=== PATIENT | male | born 2000 | race Caucasian/White ===

== ENCOUNTER 2022-04-27 19:09 | Emergency (ER) | payer OTHER ==
[~2022-04-27] VITALS: Ht 182.9 cm; Wt 128.4 kg
[2022-04-27] MEDS ORDERED: AUGMENTIN 875 MG TAB PO ONE (21:55)
[2022-04-27] MEDS ORDERED: predniSONE 20 MG TAB PO ONE (21:55)
[2022-04-27] MEDS ORDERED: ACETAMINOPHEN 500 MG TAB PO ONE (21:55)
[2022-04-27] MEDS ORDERED: AMOX875T2 PO (21:59)
[2022-04-27] MEDS ORDERED: PRED20TA PO (21:59)
[2022-04-27 22:23] VITALS: BP 149/78
== END 2022-04-27 22:30 | disposition home or self-care (01) ==
LOC: M ED 19:09
DX: J02.9 Acute pharyngitis, unspecified (principal); K21.9 Gastro-esophageal reflux disease without esophagitis; F17.200 Nicotine dependence, unspecified, uncomplicated; Z79.83 Long term (current) use of bisphosphonates; Z79.2 Long term (current) use of antibiotics; Z79.899 Other long term (current) drug therapy
CPT/HCPCS: 87880; 99283; J7512

== ENCOUNTER 2022-05-15 02:00 | Emergency (ER) | payer OTHER ==
[~2022-05-15] VITALS: Ht 182.9 cm; Wt 131.6 kg
[~2022-05-15 02:00] MED LIST: AMOX875T2 PO; PRED20TA PO
[2022-05-15 03:58] VITALS: BP 122/74
[2022-05-15] MEDS ORDERED: AMOX500C PO (03:59)
[2022-05-15] MEDS ORDERED: AMOXICILLIN 500 MG CAP PO ONE (04:00)
== END 2022-05-15 04:06 | disposition home or self-care (01) ==
LOC: M ED 02:00
DX: H66.91 Otitis media, unspecified, right ear (principal); F17.200 Nicotine dependence, unspecified, uncomplicated; F10.10 Alcohol abuse, uncomplicated; Z88.3 Allergy status to other anti-infective agents; Z79.2 Long term (current) use of antibiotics; Z79.52 Long term (current) use of systemic steroids

== ENCOUNTER 2023-02-01 01:50 | Emergency (ER) | payer OTHER, SELFPAY ==
[~2023-02-01] VITALS: Ht 182.9 cm; Wt 140.9 kg
[~2023-02-01 01:50] MED LIST changes: +AMOX500C PO
[2023-02-01 02:33] LABS: HEMATOCRIT 42.6 % (42.0-52.0); HEMOGLOBIN 15.2 g/dl (13.5-17.5); MEAN CORPUSCULAR HEMOGLOBIN 31.7 pg (27.0-33.0); MEAN CORPUSCULAR HGB CONC 35.7 g/dl (32.0-36.5); MEAN CORPUSCULAR VOLUME 88.8 fl (80.0-96.0); PLATELET COUNT, AUTOMATED 233 10^3/uL (150-450); WHITE BLOOD COUNT 7.6 10^3/uL (4.0-10.0)
[2023-02-01 02:58] LABS: ALKALINE PHOSPHATASE 59 U/L (46-116); AST/SGOT 13 U/L (<34); BILIRUBIN,TOTAL 0.5 MG/DL (0.3-1.2); BLOOD UREA NITROGEN 17 MG/DL (9-23); CPK CREATINE PHOSPHOKINASE 169 U/L (46-171); CREATININE FOR GFR 0.76 MG/DL (0.70-1.30); GLOMERULAR FILTRATION RATE > 60.0 (>60)
[2023-02-01 02:59] VITALS: TEMP 97.6
[2023-02-01 03:14] LABS: HEPATITIS B SURFACE ANTIBODY POSITIVE (POSITIVE)
[2023-02-01 03:30] VITALS: BP 137/99; O2SAT 98
[2023-02-01 03:38] LABS: HIV 1&2 SCREEN NEGATIVE (NEGATIVE)
[2023-02-01 03:47] LABS: HEPATITIS B CORE ANTIBODY IGM NEGATIVE (NEGATIVE); HEPATITIS C VIRUS ABY INDEX 0.05 INDEX (<0.8)
== END 2023-02-01 03:32 | disposition home or self-care (01) ==
LOC: M ED 01:50
DX: Z77.21 Contact with and (suspected) exposure to potentially hazardous body fluids (principal); F17.200 Nicotine dependence, unspecified, uncomplicated; F12.10 Cannabis abuse, uncomplicated; F10.10 Alcohol abuse, uncomplicated; Z88.3 Allergy status to other anti-infective agents; Z91.010 Allergy to peanuts; Y92.9 Unspecified place or not applicable; Y93.89 Activity, other specified; Z79.52 Long term (current) use of systemic steroids; Z79.2 Long term (current) use of antibiotics

== ENCOUNTER 2023-06-13 02:38 | Emergency (ER) | payer BC, SELFPAY ==
[~2023-06-13] VITALS: Ht 182.9 cm; Wt 169.0 kg
[2023-06-13] MEDS: ACETAMINOPHEN TAB 650MG DOSE (2X325MG) PO ONE (03:01)
[2023-06-13 03:44] LABS: RSV AMPLIFICATION NEGATIVE (NEGATIVE)
[2023-06-13 06:14] VITALS: BP 127/70; TEMP 98.5; O2SAT 98
[2023-06-13] MEDS ORDERED: ONDA4TAB6 PO (06:37)
[2023-06-13] MEDS ORDERED: OSEL75CA PO (06:37)
[2023-06-13] MEDS: OSELTAMIVIR PHOSPHATE 75 MG CAP (TAMIFLU) PO ONE (06:52)
[2023-06-13] MEDS: ONDANSETRON 4MG ORAL DISINTEGRATING TAB PO ONE (06:52)
[2023-06-13] MEDS: IBUPROFEN 800 MG TAB PO ONE (06:52)
== END 2023-06-13 06:59 | disposition home or self-care (01) ==
LOC: M ED 02:38
DX: J09.X2 Influenza due to identified novel influenza A virus with other respiratory manifestations (principal); F17.200 Nicotine dependence, unspecified, uncomplicated; Z91.018 Allergy to other foods; Z88.3 Allergy status to other anti-infective agents; Z79.83 Long term (current) use of bisphosphonates; Z79.899 Other long term (current) drug therapy

== ENCOUNTER 2023-09-22 21:06 | Emergency (ER) | payer BC ==
[~2023-09-22] VITALS: Ht 182.9 cm; Wt 177.3 kg
[~2023-09-22 21:06] MED LIST changes: +ONDA-282 PO; +OSEL75CA PO
[2023-09-22 21:59] LABS: CK-MB VALUE MASS < 1.0 NG/ML (<3.6)
[2023-09-22 22:01] LABS: ALBUMIN 3.8 G/DL (3.2-5.2); ALKALINE PHOSPHATASE 75 U/L (46-116); ALT/SGPT 47 U/L (7.0-40); AST/SGOT 24 U/L (<34); BASO # 0.1 10^3/uL (0.0-0.2); BASO % 0.8 % (0.0-1.0); BILIRUBIN,TOTAL 0.6 MG/DL (0.3-1.2); BLOOD UREA NITROGEN 23 MG/DL (9-23); CALCIUM LEVEL 8.9 MG/DL (8.5-10.1); CARBON DIOXIDE LEVEL 24 MMOL/L (20-31); CHLORIDE LEVEL 111 MMOL/L (98-107); CREATININE FOR GFR 1.14 MG/DL (0.70-1.30); EOS # 0.4 10^3/uL (0.0-0.5); EOS % 4.8 % (0.0-3.0); GLOMERULAR FILTRATION RATE > 60.0 (>60); GLUCOSE, FASTING 111 MG/DL (60-100); LYMPH # 2.6 10^3/uL (1.5-5.0); MEAN CORPUSCULAR HEMOGLOBIN 32.1 pg (27.0-33.0); MEAN CORPUSCULAR VOLUME 88.2 fl (80.0-96.0); MONO # 0.4 10^3/uL (0.0-0.8); NEUTROPHILS # 5.2 10^3/uL (1.5-8.5); NEUTROPHILS % 58.8 % (36.0-66.0); PLATELET COUNT, AUTOMATED 242 10^3/uL (150-450); POTASSIUM SERUM 4.2 MMOL/L (3.5-5.1); RED BLOOD COUNT 4.99 10^6/uL (4.30-6.10); SODIUM LEVEL 142 MMOL/L (136-145); TOTAL PROTEIN 6.8 G/DL (5.7-8.2); WHITE BLOOD COUNT 8.8 10^3/uL (4.0-10.0)
[2023-09-22 22:03] LABS: MEAN CORPUSCULAR HGB CONC 36.4 g/dl (32.0-36.5)
[2023-09-22 22:07] LABS: CPK CREATINE PHOSPHOKINASE 142 U/L (46-171)
[2023-09-23 00:15] VITALS: BP 165/85; TEMP 98; O2SAT 98
== END 2023-09-23 03:20 | disposition left against medical advice (07) ==
LOC: M ED 21:06
DX: Z53.21 Procedure and treatment not carried out due to patient leaving prior to being seen by health care provider (principal)

== ENCOUNTER 2023-11-08 08:27 | Emergency (ER) | payer BC, OTHER ==
[~2023-11-08] VITALS: Ht 180.3 cm; Wt 179.1 kg
[2023-11-08] MEDS: KETOROLAC 60MG 2ML VIAL IM ONE (09:42)
[2023-11-08 10:17] VITALS: BP 141/84; TEMP 96.8; O2SAT 96
== END 2023-11-08 10:23 | disposition home or self-care (01) ==
LOC: M ED 08:27
DX: S80.12XA Contusion of left lower leg, initial encounter (principal); W19.XXXA Unspecified fall, initial encounter; F17.200 Nicotine dependence, unspecified, uncomplicated; F10.10 Alcohol abuse, uncomplicated; Z88.3 Allergy status to other anti-infective agents; Z91.048 Other nonmedicinal substance allergy status; Y92.002 Bathroom of unspecified non-institutional (private) residence as the place of occurrence of the external cause; Y93.89 Activity, other specified; Y99.9 Unspecified external cause status
CPT/HCPCS: 73590; 96372; 99283; J1885

== ENCOUNTER 2023-11-13 09:56 | Emergency (ER) | payer BC, OTHER ==
[~2023-11-13] VITALS: Ht 180.3 cm; Wt 179.9 kg
[2023-11-13 12:12] VITALS: BP 143/85; TEMP 97.6; O2SAT 97
[2023-11-13] MEDS ORDERED: CEPH500C PO (12:21)
== END 2023-11-13 12:30 | disposition home or self-care (01) ==
LOC: M ED 09:56
DX: S70.12XA Contusion of left thigh, initial encounter (principal); L03.116 Cellulitis of left lower limb; W18.2XXA Fall in (into) shower or empty bathtub, initial encounter; F17.200 Nicotine dependence, unspecified, uncomplicated; Z88.8 Allergy status to other drugs, medicaments and biological substances; Z91.048 Other nonmedicinal substance allergy status; Z79.2 Long term (current) use of antibiotics; Y92.002 Bathroom of unspecified non-institutional (private) residence as the place of occurrence of the external cause; Y93.89 Activity, other specified; Y99.9 Unspecified external cause status

== ENCOUNTER 2023-12-06 06:14 | Emergency (ER) | payer BC, OTHER ==
[~2023-12-06] VITALS: Ht 180.3 cm; Wt 181.0 kg
[~2023-12-06 06:14] MED LIST changes: +CEPH500C PO
[2023-12-06 06:20] VITALS: BP 168/100; TEMP 98.7; O2SAT 98
[2023-12-06] MEDS: ACETAMINOPHEN 325 MG TAB PO ONE (07:08)
[2023-12-06] MEDS ORDERED: PENI500T PO (07:08)
[2023-12-06] MEDS: IBUPROFEN 600MG TAB PO ONE (07:08)
[2023-12-06] MEDS: PENICILLIN V POTASSIUM 500 MG TAB PO ONE (07:12)
== END 2023-12-06 07:17 | disposition home or self-care (01) ==
LOC: M ED 06:14
DX: J02.0 Streptococcal pharyngitis (principal); F17.200 Nicotine dependence, unspecified, uncomplicated; Z91.048 Other nonmedicinal substance allergy status; Z88.8 Allergy status to other drugs, medicaments and biological substances; Z79.2 Long term (current) use of antibiotics

== ENCOUNTER 2024-01-03 09:34 | Emergency (ER) | payer BC, OTHER ==
[~2024-01-03] VITALS: Ht 180.3 cm; Wt 178.0 kg
[~2024-01-03 09:34] MED LIST changes: +PENI500T PO
[2024-01-03 12:02] LABS: MONO SCRN NEGATIVE (NEGATIVE)
[2024-01-03 12:59] VITALS: BP 150/90; TEMP 97; O2SAT 97
[2024-01-03] MEDS ORDERED: AMOX875T2 PO (13:02)
== END 2024-01-03 13:09 | disposition home or self-care (01) ==
LOC: M ED 09:34
DX: J02.9 Acute pharyngitis, unspecified (principal); I10 Essential (primary) hypertension; F41.9 Anxiety disorder, unspecified; F17.200 Nicotine dependence, unspecified, uncomplicated; Z88.8 Allergy status to other drugs, medicaments and biological substances; Z91.048 Other nonmedicinal substance allergy status; Z79.2 Long term (current) use of antibiotics

== ENCOUNTER 2024-02-15 06:20 | Emergency (ER) | payer OTHER, BC ==
[~2024-02-15] VITALS: Ht 180.3 cm; Wt 183.5 kg
[2024-02-15 08:15] LABS: HEMOGLOBIN A1c 5.1 % (4.0-6.0)
[2024-02-15 08:28] VITALS: BP 168/95; TEMP 97.8; O2SAT 96
== END 2024-02-15 08:32 | disposition home or self-care (01) ==
LOC: M ED 06:20
DX: I87.2 Venous insufficiency (chronic) (peripheral) (principal); R60.9 Edema, unspecified; F17.200 Nicotine dependence, unspecified, uncomplicated; Z88.8 Allergy status to other drugs, medicaments and biological substances; Z91.018 Allergy to other foods

== ENCOUNTER 2024-03-02 01:50 | Emergency (ER) | payer OTHER, BC ==
[~2024-03-02] VITALS: Ht 182.9 cm; Wt 185.5 kg
[2024-03-02] MEDS ORDERED: NAPR-837 PO (05:42)
[2024-03-02 05:49] VITALS: BP 152/84; TEMP 97.3; O2SAT 97
[2024-03-02] MEDS: NAPROXEN 250 MG TAB PO ONE (05:50)
== END 2024-03-02 05:57 | disposition home or self-care (01) ==
LOC: M ED 01:50
DX: S29.011A Strain of muscle and tendon of front wall of thorax, initial encounter (principal); X58.XXXA Exposure to other specified factors, initial encounter; G47.30 Sleep apnea, unspecified; F17.200 Nicotine dependence, unspecified, uncomplicated; F10.10 Alcohol abuse, uncomplicated; Z91.018 Allergy to other foods; Z88.8 Allergy status to other drugs, medicaments and biological substances; Y92.9 Unspecified place or not applicable; Y93.89 Activity, other specified; Y99.9 Unspecified external cause status; Z79.1 Long term (current) use of non-steroidal anti-inflammatories (NSAID)

== ENCOUNTER → 2024-04-25 | Outpatient (CLI) | payer OTHER ==
[~2024-04-25] MED LIST changes: +NAPR-837 PO
== END ==
LOC: M SLEEP 20:00
PROVIDERS: ATTEND Nurse Practitioner Family
DX: G47.33 Obstructive sleep apnea (adult) (pediatric) (principal)

== ENCOUNTER 2024-08-04 21:53 | Emergency (ER) | payer OTHER ==
[~2024-08-04] VITALS: Ht 180.3 cm; Wt 187.8 kg
[2024-08-04 23:52] LABS: D-DIMER QUANT < 0.27 ug/mL (<0.5); INR 0.96; PARTIAL THROMBOPLASTIN TIME 28.1 SECONDS (24.8-34.2); PROTHROMBIN TIME 13.1 SECONDS (12.5-14.5)
[2024-08-05] MEDS: ACETAMINOPHEN 500 MG TAB PO ONE (00:03)
[2024-08-05 00:09] LABS: ALBUMIN 3.8 G/DL (3.2-5.2); ALKALINE PHOSPHATASE 67 U/L (40-129); ALT/SGPT 42 U/L (7.0-40); AST/SGOT 20 U/L (<34); BILIRUBIN,TOTAL 0.4 MG/DL (0.3-1.2); BLOOD UREA NITROGEN 12 MG/DL (9-23); CALCIUM LEVEL 8.8 MG/DL (8.5-10.1); CARBON DIOXIDE LEVEL 28 MMOL/L (20-31); CHLORIDE LEVEL 107 MMOL/L (98-107); CREATININE FOR GFR 0.72 MG/DL (0.70-1.30); GLOMERULAR FILTRATION RATE > 90.0 (>60); GLUCOSE, FASTING 110 MG/DL (60-100); POTASSIUM SERUM 3.9 MMOL/L (3.5-5.1); SODIUM LEVEL 143 MMOL/L (136-145); TOTAL PROTEIN 6.9 G/DL (5.7-8.2)
[2024-08-05 00:20] LABS: BASO # 0.1 10^3/uL (0.0-0.2); BASO % 0.6 % (0.0-1.0); EOS # 0.3 10^3/uL (0.0-0.5); EOS % 3.2 % (0.0-3.0); HEMATOCRIT 41.4 % (42.0-52.0); HEMOGLOBIN 14.8 g/dl (13.5-17.5); LYMPH # 2.9 10^3/uL (1.5-5.0); LYMPH % 30.1 % (24.0-44.0); MEAN CORPUSCULAR HEMOGLOBIN 31.8 pg (27.0-33.0); MEAN CORPUSCULAR HGB CONC 35.7 g/dl (32.0-36.5); MONO # 0.5 10^3/uL (0.0-0.8); MONO % 5.4 % (2.0-8.0); NEUTROPHILS # 5.7 10^3/uL (1.5-8.5); NEUTROPHILS % 60.3 % (36.0-66.0); PLATELET COUNT, AUTOMATED 238 10^3/uL (150-450); RED BLOOD COUNT 4.65 10^6/uL (4.30-6.10); WHITE BLOOD COUNT 9.5 10^3/uL (4.0-10.0)
[2024-08-05 01:30] VITALS: TEMP 98
[2024-08-05] MEDS ORDERED: KETOROLAC 30 MG/ML 1ML VIAL IV ONE (01:30)
[2024-08-05] MEDS ORDERED: IBUP-1022 PO (01:32)
[2024-08-05 01:45] VITALS: BP 141/76; O2SAT 97
== END 2024-08-05 01:54 | disposition home or self-care (01) ==
LOC: M ED 21:53
DX: R07.9 Chest pain, unspecified (principal); M25.511 Pain in right shoulder; K21.9 Gastro-esophageal reflux disease without esophagitis; F17.201 Nicotine dependence, unspecified, in remission; F10.10 Alcohol abuse, uncomplicated; Z79.1 Long term (current) use of non-steroidal anti-inflammatories (NSAID); Z91.048 Other nonmedicinal substance allergy status

== ENCOUNTER → 2024-11-11 | Outpatient (CLI) | payer OTHER ==
[~2024-11-11] MED LIST changes: +IBUP-1022 PO
== END ==
LOC: M CARPUL 10:58
PROVIDERS: ATTEND Physician Assistant
DX: R94.31 Abnormal electrocardiogram [ECG] [EKG] (principal); I34.0 Nonrheumatic mitral (valve) insufficiency

== ENCOUNTER 2024-12-27 22:27 | Emergency (ER) | payer OTHER ==
[~2024-12-27] VITALS: Ht 180.3 cm; Wt 183.8 kg
[~2024-12-27 22:27] MED LIST changes: -IBUP-1022 PO; +IBUP600T42 PO
[2024-12-27 23:00] LABS: BASO # 0.1 10^3/uL (0.0-0.2); BASO % 0.7 % (0.0-1.0); EOS # 0.3 10^3/uL (0.0-0.5); EOS % 2.9 % (0.0-3.0); LYMPH # 3.2 10^3/uL (1.5-5.0); LYMPH % 33.3 % (24.0-44.0); MONO # 0.6 10^3/uL (0.0-0.8); MONO % 6.0 % (2.0-8.0); NEUTROPHILS # 5.4 10^3/uL (1.5-8.5); NEUTROPHILS % 56.8 % (36.0-66.0); PLATELET COUNT, AUTOMATED 242 10^3/uL (150-450)
[2024-12-27 23:42] LABS: CALCIUM LEVEL 9.6 MG/DL (8.5-10.1); CARBON DIOXIDE LEVEL 30 MMOL/L (20-31); CHLORIDE LEVEL 108 MMOL/L (98-107); CK-MB VALUE MASS 1.8 NG/ML (<3.6); CREATININE FOR GFR 0.83 MG/DL (0.70-1.30); GLOMERULAR FILTRATION RATE > 90.0 (>60); POTASSIUM SERUM 4.2 MMOL/L (3.5-5.1); SODIUM LEVEL 143 MMOL/L (136-145)
[2024-12-27 23:56] LABS: CPK CREATINE PHOSPHOKINASE 203 U/L (46-171); MB/CK RELATIVE INDEX 0.88 (< OR =4)
[2024-12-28] MEDS ORDERED: ISOVUE-370 76% 100 ML VIAL As Ordered ONE (00:32)
[2024-12-28 02:12] VITALS: O2SAT 97
[2024-12-28 02:15] VITALS: BP 155/91; TEMP 96.7
== END 2024-12-28 02:24 | disposition home or self-care (01) ==
LOC: M ED 22:27
DX: R07.9 Chest pain, unspecified (principal); R04.2 Hemoptysis; I10 Essential (primary) hypertension; K21.9 Gastro-esophageal reflux disease without esophagitis; F17.200 Nicotine dependence, unspecified, uncomplicated; F10.10 Alcohol abuse, uncomplicated; Z88.8 Allergy status to other drugs, medicaments and biological substances; Z91.048 Other nonmedicinal substance allergy status
CPT/HCPCS: 36415; 71045; 71275; 80048; 82550; 82553; 84484; 85025; 87880; 93005; 99284; Q9967

== ENCOUNTER → 2025-01-24 | Outpatient (CLI) | payer OTHER ==
[~2025-01-24] MED LIST changes: +BUSP5TA PO; +CHLO125TA PO; +TUMS500C PO
== END ==
LOC: M CARPUL 15:52
PROVIDERS: ATTEND Physician Assistant
DX: R07.9 Chest pain, unspecified (principal)

== ENCOUNTER 2025-01-27 12:29 | Observation (INO) | payer OTHER ==
[~2025-01-27] VITALS: Ht 180.3 cm; Wt 183.3 kg
[~2025-01-27 12:29] MED LIST changes: -BUSP5TA PO; -CHLO125TA PO; -TUMS500C PO
[2025-01-27] MEDS: NS (Normal Saline) 0.9% 1,000 ML IV ONE ×2 (14:25→20:19)
[2025-01-27] MEDS: ONDANSETRON 4MG/2ML VIAL IV ONE (14:25)
[2025-01-27] MEDS: KETOROLAC 30 MG/ML 1 ML VIAL IV ONE (14:25)
[2025-01-27 14:34] LABS: BASO # 0.1 10^3/uL (0.0-0.2); BASO % 0.3 % (0.0-1.0); EOS # 0.1 10^3/uL (0.0-0.5); EOS % 0.4 % (0.0-3.0); LYMPH # 0.9 10^3/uL (1.5-5.0); LYMPH % 3.7 % (24.0-44.0); MONO # 1.0 10^3/uL (0.0-0.8); MONO % 4.2 % (2.0-8.0); NEUTROPHILS # 21.7 10^3/uL (1.5-8.5); NEUTROPHILS % 90.5 % (36.0-66.0); PLATELET COUNT, AUTOMATED 214 10^3/uL (150-450)
[2025-01-27 15:00] LABS: ALT/SGPT 42 U/L (7.0-40); AST/SGOT 23 U/L (<34); CALCIUM LEVEL 9.5 MG/DL (8.5-10.1); CARBON DIOXIDE LEVEL 30 MMOL/L (20-31); CHLORIDE LEVEL 101 MMOL/L (98-107); CREATININE FOR GFR 1.00 MG/DL (0.70-1.30); GLOMERULAR FILTRATION RATE > 90.0 (>60); MAGNESIUM LEVEL 1.4 MG/DL (1.8-2.4); POTASSIUM SERUM 3.9 MMOL/L (3.5-5.1); SODIUM LEVEL 141 MMOL/L (136-145)
[2025-01-27] MEDS: MAG SULF 1GM/100ML (MAG RUN) 1 GM in IV 1 EA IV ONE ×3 (15:22→19:55)
[2025-01-27] MEDS ORDERED: ISOVUE-370 76% 100 ML VIAL As Ordered ONE (15:38)
[2025-01-27] MEDS: ACETAMINOPHEN *IV* 1,000 MG in IV 1 EA IV ONE (19:07)
[2025-01-27] MEDS: diphenhydrAMINE 50 MG/ML VIAL IV STA (19:08)
[2025-01-27 20:38] LABS: KETONE, URINE AUTO RFX NEGATIVE (NEGATIVE); LEUKOCYTE ESTERASE UR AUTO RFX NEGATIVE (NEGATIVE); MUCUS, URINE RFX SMALL (NEGATIVE); NITRITE, URINE AUTO RFX NEGATIVE (NEGATIVE); RBC, URINE AUTO RFX 1 /HPF (0-3); SQUAM EPITHELIAL CELL UR AURFX 0 /HPF (0-6); WBC, URINE AUTO RFX 0 /HPF (0-3)
[2025-01-27] MEDS ORDERED: ONDANSETRON 4MG/2ML VIAL IV PRN (20:40)
[2025-01-27 20:53] LABS: CK-MB VALUE MASS < 1.0 NG/ML (<3.6); MAGNESIUM LEVEL 1.7 MG/DL (1.8-2.4)
[2025-01-27 20:54] LABS: CPK CREATINE PHOSPHOKINASE 129 U/L (46-171)
[2025-01-27] MEDS ORDERED: CHLO125TA PO (21:15)
[2025-01-27] MEDS ORDERED: BUSP5TA PO (21:15)
[2025-01-27] MEDS ORDERED: TUMS500C PO (21:19)
[2025-01-27] MEDS ORDERED: HOME MED LIST COMPLETE! XX SCH (21:20)
[2025-01-27] MEDS: PANTOPRAZOLE 40MG VIAL IV SCH (21:35)
[2025-01-27] MEDS: D5W/0.45% SODIUM CHLORIDE 1,000 ML IV SCH (21:35)
[2025-01-27 22:44] LABS: CALCIUM LEVEL 7.9 MG/DL (8.5-10.1); CARBON DIOXIDE LEVEL 25 MMOL/L (20-31); CHLORIDE LEVEL 101 MMOL/L (98-107); CREATININE FOR GFR 1.04 MG/DL (0.70-1.30); GLOMERULAR FILTRATION RATE > 90.0 (>60); POTASSIUM SERUM 3.7 MMOL/L (3.5-5.1); SODIUM LEVEL 137 MMOL/L (136-145); TRIGLYCERIDES LEVEL 78 MG/DL (<150)
[2025-01-28] MEDS: ACETAMINOPHEN 325 MG TAB PO PRN (06:06)
[2025-01-28 08:51] LABS: BASO # 0.0 10^3/uL (0.0-0.2); BASO % 0.3 % (0.0-1.0); EOS # 0.0 10^3/uL (0.0-0.5); EOS % 0.4 % (0.0-3.0); LYMPH # 1.0 10^3/uL (1.5-5.0); LYMPH % 10.9 % (24.0-44.0); MONO # 0.5 10^3/uL (0.0-0.8); MONO % 5.5 % (2.0-8.0); NEUTROPHILS # 7.4 10^3/uL (1.5-8.5); NEUTROPHILS % 82.2 % (36.0-66.0); PLATELET COUNT, AUTOMATED 176 10^3/uL (150-450)
[2025-01-28 09:05] LABS: CALCIUM LEVEL 7.8 MG/DL (8.5-10.1); CARBON DIOXIDE LEVEL 28 MMOL/L (20-31); CHLORIDE LEVEL 103 MMOL/L (98-107); CREATININE FOR GFR 0.95 MG/DL (0.70-1.30); GLOMERULAR FILTRATION RATE > 90.0 (>60); MAGNESIUM LEVEL 1.8 MG/DL (1.8-2.4); POTASSIUM SERUM 3.2 MMOL/L (3.5-5.1); SODIUM LEVEL 139 MMOL/L (136-145)
[2025-01-28] MEDS: ENOXAPARIN 40 MG/0.4 ML SYRINGE (J1650 PER 10MG) SC SCH (09:33)
[2025-01-28] MEDS: ceFAZolin SODIUM 2 GM in DEXTROSE 5% (D5W) ADV/MINI-BAG 50 ML IV SCH (10:52)
[2025-01-28 19:29] VITALS: BP 132/86; TEMP 97.7; O2SAT 95
[2025-01-29 04:34] VITALS: BP 127/79; TEMP 97.3; O2SAT 95
[2025-01-29 06:58] LABS: PLATELET COUNT, AUTOMATED 185 10^3/uL (150-450)
[2025-01-29 07:58] LABS: ALT/SGPT 29 U/L (7.0-40); AST/SGOT 20 U/L (<34); CALCIUM LEVEL 8.4 MG/DL (8.5-10.1); CARBON DIOXIDE LEVEL 29 MMOL/L (20-31); CHLORIDE LEVEL 106 MMOL/L (98-107); CREATININE FOR GFR 0.86 MG/DL (0.70-1.30); GLOMERULAR FILTRATION RATE > 90.0 (>60); MAGNESIUM LEVEL 2.0 MG/DL (1.8-2.4); POTASSIUM SERUM 3.7 MMOL/L (3.5-5.1); SODIUM LEVEL 145 MMOL/L (136-145)
[2025-01-29] MEDS ORDERED: CEPH500C PO (11:05)
== END 2025-01-29 11:55 | disposition home or self-care (01) ==
LOC: M ED 12:29 → M ED INP 12:30 → M MS5PR 01-28 14:15
PROVIDERS: ADMIT Internal Medicine; ATTEND Family Medicine
DX: R11.2 Nausea with vomiting, unspecified (principal); E83.42 Hypomagnesemia; R53.1 Weakness; K76.0 Fatty (change of) liver, not elsewhere classified; I10 Essential (primary) hypertension; F41.9 Anxiety disorder, unspecified; E66.01 Morbid (severe) obesity due to excess calories; R22.42 Localized swelling, mass and lump, left lower limb; M79.662 Pain in left lower leg
CPT/HCPCS: 36415; 74177; 80048; 80053; 81001; 82150; 82550; 82553; 83605; 83690; 83735; 84145; 84443; 84478; 84484; 85025; 85027; 87040; 87486; 87581; 87633; 87798; 93005; 93971; 96361; 96365; 96366; 96372; 96375; 96376; 99285; G0378; J0131; J0688; J1200; J1650; J1885; J2405; J2470; J2765; J3475; Q9967

== ENCOUNTER → 2025-03-14 | Outpatient (CLI) | payer OTHER ==
[~2025-03-14] MED LIST changes: +BUSP5TA PO; +CHLO125TA PO; +TUMS500C PO
== END ==
LOC: M CARPUL 11:52
PROVIDERS: ATTEND Physician Assistant
DX: R07.9 Chest pain, unspecified (principal)
CPT/HCPCS: 78452; 93017; A9500; J2785